=== PATIENT | female | born 1965 | race Caucasian/White ===

== ENCOUNTER 2020-12-08 02:16 | Outpatient (CLI) | payer MEDICAID, SELFPAY ==
--- NOTE | 2020-12-08 | DI.RAD_ITS ---
Exam(s) XR FOOT LT COMPLETE EXAM: XR FOOT LT COMPLETE CLINICAL HISTORY: LT FOOT PAIN, M79.672 TECHNIQUE: COMPARISON: CR LEFT FOOT COMPLETE from 06/26/2010 FINDINGS: Three views were obtained. There is no evidence of acute fracture or dislocation. IMPRESSION: RADIATION DOSE DELIVERED: Total DLP
== END 2020-12-08 02:36 ==
PROVIDERS: PCP Nurse Practitioner Family; Visit Provider Nurse Practitioner Family
DX: M79.672 Pain in left foot (principal)
CPT/HCPCS: 73630

== ENCOUNTER → 2023-09-30 09:27 | Outpatient (CLI) | payer MEDICAID, SELFPAY ==
--- NOTE | 2023-09-30 14:30 | DI.RAD_ITS ---
Exam(s) XR KNEE RT 4V+ EXAM: XR KNEE RT 4V+ CLINICAL HISTORY: M25.461 Effusion, M25.561 Pain RT knee, W19.XXXA fall. TECHNIQUE: 2D digital imaging was performed. COMPARISON: No exams were available for comparison FINDINGS: 3 views There is osseous irregularity on the lateral aspect of the patella which are either fracture fragment s or tripartite patella. Also mild patellar offset noted and small joint effusion. Otherwise there are mild degenerative changes in the medial lateral compartments. No tibial plateau fracture. IMPRESSION: Patellar findings as above. DATA REPOSITORY: RADIATION DOSE DELIVERED:
--- NOTE | 2023-09-30 17:15 | DI.VRAD_ITS ---
PROCEDURE INFORMATION: Exam: XR Right Knee Exam date and time: 09/30/2023 3:56 PM Age: 58 years old Clinical indication: Pain; Knee; Right TECHNIQUE: Imaging protocol: Radiologic exam of the right knee. Views: 4 or more views. COMPARISON: No relevant prior studies available. FINDINGS: Bones/joints: Mild tricompartmental joint space narrowing. Small to moderate-sized osteophytes of the joint margins. The patella is superior orientation worrisome for patellar ligament rupture. Examination negative for fracture. Soft tissues: Unremarkable. IMPRESSION: 1. Patella Bobbi worrisome for patellar ligament rupture. 2. [id number] arthrosis of the knee. Dictated and Authenticated by: Juan C Jeronimo MD. Ordering:MAXWELL Castro MD
== END ==
PROVIDERS: PCP Nurse Practitioner Family; Visit Provider Family Medicine
DX: M25.461 Effusion, right knee (principal); M25.561 Pain in right knee; W19.XXXA Unspecified fall, initial encounter
CPT/HCPCS: 73564

== ENCOUNTER → 2023-10-11 00:22 | Outpatient (CLI) | payer MEDICAID, SELFPAY ==
--- NOTE | 2023-10-11 08:00 | DI.MRI_ITS ---
Exam(s) MR LOWER JOINT RT WO EXAM: MR LOWER JOINT RT WO CLINICAL HISTORY: ? PATELLA TENDON RUPTURE,PATELLAR INSTABILITY,dislocation rt patella,s83.00. TECHNIQUE: Multiplanar multisequence MRI was performed. COMPARISON: CR,XR XR KNEE RT 4V+ from 09/30/2023 FINDINGS: BONES: No fracture is seen. There is marrow edema seen in the medial aspect of the medial femoral co ndyle. JOINTS: There is chondromalacia of the patella femoral joint. Subchondral edema is seen in both the medial and lateral patellar facets, particularly medially. There is a small joint effusion. There i s mild chondromalacia involving the medial femoral tibial joint. Osteophytes are seen in both the me dial and lateral femoral tibial joints. TENDONS: Extensor mechanism: The extensor mechanism is homogeneously hypointense. No evidence of a tear. Medial retinaculum: Unremarkable. Lateral retinaculum: Unremarkable. Popliteus: Unremarkable. MUSCLES: Unremarkable. MENISCI: The medial meniscus is unremarkable. The lateral meniscus is unremarkable. SOFT TISSUES: There is a multiloculated fluid collection posterior to the distal femur measuring 1.4 x 2.6 cm which may represent a ganglion. It is separate from the adjacent vessels. LIGAMENTS: Anterior Cruciate: Unremarkable. Posterior Cruciate: Unremarkable. Medial Collateral:Unremarkable. Lateral Collateral: Unremarkable. OTHER: IMPRESSION: 1. Normal signal and size of the extensor tendon. No evidence of a tendon tear. 2. No evidence of a meniscal or ligament tear. 3. Chondromalacia of the patellofemoral joint. 4. Degenerative changes seen in the femoral tibial joints. 5. Small joint effusion. 6. Multiloculated fluid collection posterior to the femur which may represent a ganglion. 7. Mild marrow edema in the medial femoral condyle. DATA REPOSITORY:
== END ==
PROVIDERS: PCP Nurse Practitioner Family; Visit Provider Student in an Organized Health Care Education/Training Program
DX: S83.004A Unspecified dislocation of right patella, initial encounter (principal)
CPT/HCPCS: 73721

== ENCOUNTER 2024-02-26 16:49 | Outpatient (CLI) | payer SELFPAY ==
--- NOTE | 2024-02-26 16:30 | DI.RAD_ITS ---
Exam(s) XR MANDIBLE COMPLETE XR TMJ LT EXAM: XR MANDIBLE COMPLETE and XR TMJ LT CLINICAL HISTORY: inability to open jaw, mandibular pain, M68.84-jaw pain. TECHNIQUE: 2D digital imaging was performed. Seven images were obtained. COMPARISON: There are no priors for comparison. FINDINGS: BONES: No evidence of fracture. The paranasal sinuses are clear. No air-fluid levels are present. The bones are normally mineralized. JOINTS: No evidence of temporomandibular joint dislocation or subluxation. The temporal mandibular j oint shows normal movement with an open and closed mouth position. SOFT TISSUES: Unremarkable. IMPRESSION: Unremarkable radiographs of the mandible and TMJ. DATA REPOSITORY: RADIATION DOSE DELIVERED:
--- NOTE | 2024-02-26 17:35 | DI.VRAD_ITS ---
PROCEDURE INFORMATION: Exam: XR Left Temporomandibular Joint, Open and Closed Mouth, Unilateral Exam date and time: 02/26/2024 16:51 Age: 58 years old Clinical indication: Other: Inability to fully open jaw, TECHNIQUE: Imaging protocol: XR of the left temporomandibular joint, open and closed mouth views. Unilateral exam. COMPARISON: CR XR MANDIBLE COMPLETE 02/26/2024 16:47 FINDINGS: Sinuses: Well aerated. Bones/joints: No acute fracture or subluxation. Normal movement of the left TMJ radiographically with open mouth position. Soft tissues: Unremarkable. IMPRESSION: No acute bony pathology. Dictated and Authenticated by: Avis Ellis MD. Ordering:GENA Aden MD
--- NOTE | 2024-02-26 17:36 | DI.VRAD_ITS ---
PROCEDURE INFORMATION: Exam: XR Left Mandible Exam date and time: 02/26/2024 16:47 Age: 58 years old Clinical indication: Other: Inability to fully open jaw, TECHNIQUE: Imaging protocol: XR of the left mandible. Views: 4 or more views COMPARISON: No relevant prior studies available. FINDINGS: Sinuses: Well aerated. Bones/joints: No acute fracture or subluxation. Soft tissues: Unremarkable. IMPRESSION: No acute bony pathology. Consider further workup with CT if clinically indicated. Dictated and Authenticated by: Avis Ellis MD. Ordering:GENA Aden MD
== END 2024-02-26 17:09 ==
LOC: DI 16:51
PROVIDERS: PCP Nurse Practitioner Family; Visit Provider Nurse Practitioner Family
DX: M26.623 Arthralgia of bilateral temporomandibular joint
CPT/HCPCS: 70110; 70328